=== PATIENT | male | born 1980 ===

== ENCOUNTER 2019-03-28 11:33 | Inpatient (IN) | payer MEDICAID ==
[~2019-03-28] VITALS: Ht 175.3 cm; Wt 82.1 kg
[2019-03-28 12:21] LABS: PLATELET COUNT 309 x10^3mcL (130-400); RED CELL DISTRIBUTION WIDTH 14.2 % (11.5-14.5)
[2019-03-28 12:54] LABS: ALBUMIN 3.6 g/dL (3.4-5.0); ALKALINE PHOSPHATASE 72 U/L (46-116); ALT/SGPT 23 U/L (16-63); AST/SGOT 20 U/L (15-37); BILIRUBIN TOTAL 0.7 mg/dL (0.20-1.00); CALCIUM 8.9 mg/dL (8.5-10.1); CARBON DIOXIDE 22.5 mmol/L (21-32); CHLORIDE SERUM 105 mmol/L (98-107); CREATININE SERUM 0.6 mg/dL (0.7-1.3); GFR1 > 60 mL/min; GLUCOSE SERUM 105 mg/dL (74-106); POTASSIUM SERUM 3.8 mmol/L (3.5-5.1); SODIUM SERUM 142 mmol/L (136-145); TOTAL PROTEIN, SERUM 7.9 g/dL (6.4-8.2)
[2019-03-28 14:05] LABS: AMPHETAMINE QUAL UR POSITIVE (See below)
[2019-03-29 16:11] VITALS: BP 147/97
[2019-03-29 17:10] LABS: TOTAL PROTEIN CSF 0.1 mg/dL (15-45)
[2019-03-29 17:43] LABS: COLOR CSF COLORLESS
[2019-03-29 17:44] LABS: APPEARANCE CSF CLEAR; RBC CSF 3 /cumm (0); WBC CSF 0 /cumm (0-5)
[2019-03-29 18:58] LABS: BASOPHIL % 0.5 % (0-2); PLATELET COUNT 360 x10^3mcL (130-400)
[2019-03-29 19:07] LABS: ALBUMIN 3.5 g/dL (3.4-5.0); ALKALINE PHOSPHATASE 75 U/L (46-116); ALT/SGPT 31 U/L (16-63); AST/SGOT 45 U/L (15-37); BILIRUBIN TOTAL 0.49 mg/dL (0.20-1.00); CALCIUM 9.2 mg/dL (8.5-10.1); CARBON DIOXIDE 18.6 mmol/L (21-32); CHLORIDE SERUM 109 mmol/L (98-107); CREATININE SERUM 0.8 mg/dL (0.7-1.3); GFR1 > 60 mL/min; GLUCOSE SERUM 143 mg/dL (74-106); POTASSIUM SERUM 3.6 mmol/L (3.5-5.1); SODIUM SERUM 144 mmol/L (136-145)
[2019-03-29 20:48] VITALS: BP 150/101
[2019-03-29 22:08] VITALS: BP 152/97
[2019-03-30] VITALS (18 sets, daily range): BP systolic 129–162; BP diastolic 34–101; Ht 175.3 cm; Wt 82.1 kg
[2019-03-30 02:04] LABS: PLATELET COUNT 337 x10^3mcL (130-400); RED CELL DISTRIBUTION WIDTH 14.1 % (11.5-14.5)
[2019-03-30 02:05] LABS: BASOPHIL % 0 % (0-2)
[2019-03-30 02:13] LABS: POTASSIUM SERUM 3.5 mmol/L (3.5-5.1); SODIUM SERUM 143 mmol/L (136-145)
[2019-03-30 02:14] LABS: CALCIUM 8.6 mg/dL (8.5-10.1); CARBON DIOXIDE 22 mmol/L (21-32); CHLORIDE SERUM 109 mmol/L (98-107); CREATININE SERUM 0.7 mg/dL (0.7-1.3); GFR1 > 60 mL/min; GLUCOSE SERUM 148 mg/dL (74-106)
[2019-03-30 07:00] LABS: CALCIUM 9.2 mg/dL (8.5-10.1); CARBON DIOXIDE 22.7 mmol/L (21-32); CHLORIDE SERUM 109 mmol/L (98-107); CREATININE SERUM 0.8 mg/dL (0.7-1.3); GFR1 > 60 mL/min; GLUCOSE SERUM 144 mg/dL (74-106); POTASSIUM SERUM 3.9 mmol/L (3.5-5.1); SODIUM SERUM 144 mmol/L (136-145)
[2019-03-30 08:44] LABS: BASOPHIL % 0.3 % (0-2); PLATELET COUNT 329 x10^3mcL (130-400)
[2019-03-31] VITALS (18 sets, daily range): BP systolic 102–167; BP diastolic 75–101
[2019-03-31 05:35] LABS: BASOPHIL % 0.7 % (0-2); PLATELET COUNT 305 x10^3mcL (130-400); RED CELL DISTRIBUTION WIDTH 13.7 % (11.5-14.5)
[2019-03-31 05:44] LABS: CALCIUM 8.1 mg/dL (8.5-10.1); CARBON DIOXIDE 26.1 mmol/L (21-32); CHLORIDE SERUM 108 mmol/L (98-107); CREATININE SERUM 0.6 mg/dL (0.7-1.3); GFR1 > 60 mL/min; GLUCOSE SERUM 108 mg/dL (74-106); SODIUM SERUM 144 mmol/L (136-145)
[2019-03-31 05:49] LABS: POTASSIUM SERUM 2.7 mmol/L (3.5-5.1)
[2019-04-01] VITALS (8 sets, daily range): BP systolic 126–154; BP diastolic 86–99
[2019-04-01 05:16] LABS: BASOPHIL % 0.6 % (0-2); PLATELET COUNT 297 x10^3mcL (130-400); RED CELL DISTRIBUTION WIDTH 14.2 % (11.5-14.5)
[2019-04-01 05:25] LABS: CALCIUM 8.3 mg/dL (8.5-10.1); CARBON DIOXIDE 26.7 mmol/L (21-32); CHLORIDE SERUM 108 mmol/L (98-107); CREATININE SERUM 0.6 mg/dL (0.7-1.3); GFR1 > 60 mL/min; GLUCOSE SERUM 121 mg/dL (74-106); MAGNESIUM 1.8 mg/dL (1.8-2.4); SODIUM SERUM 143 mmol/L (136-145)
[2019-04-01 05:29] LABS: POTASSIUM SERUM 2.8 mmol/L (3.5-5.1)
== END 2019-04-01 16:01 | disposition left against medical advice (07) | DRG 133 ==
LOC: ED 11:33 → IC 03-29 11:42
PROVIDERS: Emergency Medicine; Family Medicine; ADMIT Internal Medicine
PROC: 5A1945Z Respiratory Ventilation, 24-96 Consecutive Hours (ICD-10-PCS; principal; 2019-03-29)
PROC: 0BH17EZ Insertion of Endotracheal Airway into Trachea, Via Natural or Artificial Opening (ICD-10-PCS; 2019-03-29)
PROC: 009U3ZX Drainage of Spinal Canal, Percutaneous Approach, Diagnostic (ICD-10-PCS; 2019-03-29)
PROC: 05HN33Z Insertion of Infusion Device into Left Internal Jugular Vein, Percutaneous Approach (ICD-10-PCS; 2019-03-30)
PROC: 0DJ08ZZ Inspection of Upper Intestinal Tract, Via Natural or Artificial Opening Endoscopic (ICD-10-PCS; 2019-03-31)
DX: J96.01 Acute respiratory failure with hypoxia (principal); J69.0 Pneumonitis due to inhalation of food and vomit; G92 Toxic encephalopathy; K92.0 Hematemesis; T43.621A Poisoning by amphetamines, accidental (unintentional), initial encounter; F12.121 Cannabis abuse with intoxication delirium; F15.221 Other stimulant dependence with intoxication delirium; R45.1 Restlessness and agitation; R19.7 Diarrhea, unspecified; R50.9 Fever, unspecified; E87.6 Hypokalemia; Z53.29 Procedure and treatment not carried out because of patient's decision for other reasons; Z68.26 Body mass index [BMI] 26.0-26.9, adult; Y92.9 Unspecified place or not applicable
CPT/HCPCS: 31500; 36556; 36600; 43235; 87804; 90658; A4628; C9113; G0378; G0480; J0133; J0171; J0696; J1200; J1610; J1630; J1642; J1885; J2001; J2060; J2250; J2270; J2310; J2354; J2405; J2704; J2765; J3010; J3370; J3480; J3490; J7030; J7042; J7050; J7060; Q0092

== ENCOUNTER 2019-04-01 16:11 | Emergency (ER) | payer SELFPAY ==
[~2019-04-01] VITALS: Ht 177.8 cm; Wt 79.4 kg
[2019-04-01 16:15] VITALS: Ht 177.8 cm; Wt 79.4 kg
[2019-04-01 19:14] VITALS: BP 152/103
== END 2019-04-01 18:55 | disposition home or self-care (01) ==
LOC: ED 16:11
DX: F19.10 Other psychoactive substance abuse, uncomplicated (principal); R41.82 Altered mental status, unspecified